=== PATIENT | female | born 1955 | race Caucasian/White ===

== ENCOUNTER 2022-03-17 16:12 | Inpatient (IN) | payer OTHER ==
[~2022-03-17] VITALS: Ht 160 cm; Wt 80.9 kg
[2022-03-17 17:37] LABS: BASOPHILS % 0.4 % (0.0-2.0); EOSINOPHILS % 1.7 % (0.0-5.0); HEMATOCRIT. 41.7 % (36.0-48.0); HEMOGLOBIN. 13.9 g/dL (12.0-16.0); LYMPHOCYTES % 27.8 % (20.0-50.0); MEAN CORPUSCULAR HEMOGLOBIN 32.3 pg (28.0-32.0); MEAN CORPUSCULAR VOLUME 96.7 fL (81.0-99.0); MONOCYTES % 7.5 % (2.0-8.0); NEUTROPHILS % 62.6 % (40.0-76.0); PLATELET 204 x1000/uL (130-400); RED BLOOD CELL COUNT 4.31 mill/uL (4.2-5.4); RED CELL DISTRIBUTION WIDTH 13.7 % (11.6-14.6)
[2022-03-17 17:43] LABS: CHLORIDE 108 mEq/L (98-107)
[2022-03-17] MEDS ORDERED: SODIUM CHLORIDE 0.9% 1,000 ML IV ONE ×2 (18:00→21:00)
[2022-03-17] MEDS ORDERED: LORAZEPAM 2MG/ML CPJ IV PRN (22:00)
[2022-03-17] MEDS ORDERED: HYDROCODONE/APAP 7.5/325MG 1 TAB TABLET PO PRN (22:00)
[2022-03-17] MEDS ORDERED: ONDANSETRON HCL 4MG/2ML INJ IV PRN (22:00)
[2022-03-17] MEDS ORDERED: ACETAMINOPHEN 325MG TABLET PO PRN (22:00)
[2022-03-17] MEDS ORDERED: DOCUSATE SODIUM 100MG CAPSULE PO PRN (22:00)
[2022-03-17] MEDS ORDERED: MORPHINE SULFATE 2 MG/ML CPJ (NOT FOR IM USE) IV PRN (22:00)
[2022-03-17] MEDS ORDERED: CLONIDINE 0.1MG TABLET PO PRN (22:00)
[2022-03-17] MEDS ORDERED: NALOXONE HCL 0.4MG/ML VIAL IV PRN (22:15)
[2022-03-18 00:54] LABS: CREATINE KINASE MB FRACTION 1.4 ng/mL (0.5-3.6)
[2022-03-18 04:25] VITALS: BP 178/79
[2022-03-18] MEDS ORDERED: ASPI-986 MT (05:36)
[2022-03-18 06:42] VITALS: BP 142/68
[2022-03-18 07:16] LABS: BASOPHILS % 0.9 % (0.0-2.0); EOSINOPHILS % 2.4 % (0.0-5.0); HEMATOCRIT. 37.4 % (36.0-48.0); HEMOGLOBIN. 12.5 g/dL (12.0-16.0); LYMPHOCYTES % 40.5 % (20.0-50.0); MEAN CORPUSCULAR HEMOGLOBIN 31.8 pg (28.0-32.0); MEAN CORPUSCULAR VOLUME 95.4 fL (81.0-99.0); MEAN PLATELET VOLUME 9.1 fl (7.4-10.4); NEUTROPHILS % 46.2 % (40.0-76.0); PLATELET 220 x1000/uL (130-400); RED BLOOD CELL COUNT 3.93 mill/uL (4.2-5.4); RED CELL DISTRIBUTION WIDTH 13.6 % (11.6-14.6)
[2022-03-18 07:34] LABS: CHLORIDE 110 mEq/L (98-107)
[2022-03-18 07:43] LABS: CREATINE KINASE 100 IU/L (26-192); CREATINE KINASE MB FRACTION 1.1 ng/mL (0.5-3.6); PHOSPHORUS 3.8 mg/dL (2.5-4.9)
[2022-03-18 08:00] VITALS: BP 95/53
[2022-03-18] MEDS: ASPIRIN 81MG EC TABLET PO SCH (08:43)
[2022-03-18] MEDS ORDERED: REGADENOSON 0.4 MG/5 ML IV NR (11:15)
[2022-03-18 12:00] VITALS: BP 117/53
[2022-03-18 13:36] LABS: ETHANOL BLOOD < 10 mg/dL; HDL CHOLESTEROL 45 mg/dL (40-59); LDL CHOLESTEROL 121 mg/dL (5-100)
[2022-03-18 16:20] VITALS: BP 115/53
[2022-03-18 20:00] VITALS: BP 131/67
[2022-03-18 21:11] LABS: PROTHROMBIN TIME 10.7 sec (9.6-11.0)
[2022-03-18 22:24] LABS: CLARITY URINE CLEAR (CLEAR); COLOR URINE YELLOW (YELLOW); KETONES URINE NEGATIVE (NEGATIVE); LEUKOCYTE ESTERASE URINE 2+ (NEGATIVE); NITRITE URINE NEGATIVE (NEGATIVE); OCCULT BLOOD URINE NEGATIVE (NEGATIVE); PH URINE 6.5 (4.5-8.0); PROTEIN URINE NEGATIVE (NEGATIVE); SPECIFIC GRAVITY URINE 1.013 (1.005-1.030)
[2022-03-18 22:52] LABS: *AMPHETAMINES SCREEN URINE NEGATIVE (NEGATIVE); *BARBITURATES SCREEN URINE NEGATIVE (NEGATIVE); *BENZODIAZEPINES SCREEN URINE NEGATIVE (NEGATIVE); *COCAINE SCREEN URINE NEGATIVE (NEGATIVE); CANNABINOID URINE SCREEN NEGATIVE (NEGATIVE); METHADONE URINE SCREEN NEGATIVE (NEGATIVE); OPIATES URINE SCREEN NEGATIVE (NEGATIVE); PHENCYCLIDINE URINE SCREEN NEGATIVE (NEGATIVE)
[2022-03-19] VITALS: BP 132/72
[2022-03-19 04:00] VITALS: BP 108/52
[2022-03-19] MEDS ORDERED: CEFTRIAXONE 1 G PREMIX 50 ML IV SCH (08:00)
[2022-03-19] MEDS ORDERED: IODIXANOL 320 MG/ML 150ML BOTTLE IV ONE (08:10)
[2022-03-19] MEDS ORDERED: LIDOCAINE HCL/PF 1% 10 MG/ML 5ML VIAL ONE (08:10)
[2022-03-19] MEDS ORDERED: HEPARIN 1000 UNITS/ML 10ML ONE (08:11)
[2022-03-19] MEDS ORDERED: VERAPAMIL HCL 2.5 MG/1 ML 2ML VIAL IV ONE (08:11)
[2022-03-19] MEDS ORDERED: MIDAZOLAM HCL 2 MG/2 ML VIAL ONE (08:13)
[2022-03-19] MEDS ORDERED: FENTANYL CITRATE/PF 50MCG/ML 2ML VIAL ONE (08:13)
[2022-03-19] MEDS ORDERED: DIPHENHYDRAMINE 50MG/ML VIAL ONE (08:13)
[2022-03-19] MEDS ORDERED: NITROGLYCERIN 50MCG/ML 10ML VIAL (CATH LAB) IV ONE (08:19)
[2022-03-19] MEDS ORDERED: NICARDIPINE 100MCG/ML 10ML VIAL (CATH LAB) IV ONE (08:19)
[2022-03-19] MEDS ORDERED: ATROPINE SULFATE 1MG/10ML SYR IV PRN (09:00)
[2022-03-19] MEDS: ASPIRIN 81MG EC TABLET PO SCH (09:00)
[2022-03-19] MEDS ORDERED: LEVO500T90 MT (09:45)
[2022-03-19] MEDS ORDERED: CEFTRIAXONE 1,000 MG in DEXTROSE 5% WATER 50 ML IV SCH (10:00)
[2022-03-19 12:00] VITALS: BP 137/74
[2022-03-19 13:24] VITALS: BP 137/74
== END 2022-03-19 15:15 | disposition home or self-care (01) | DRG 287 ==
LOC: ER 16:12 → MICUSO 19:53 → EDBEDREQ 20:43 → EDBEDREQTM 20:43 → 8WST 03-18 04:42
PROVIDERS: ADMIT Internal Medicine Nephrology; ATTEND Internal Medicine Nephrology
PROC: 4A023N7 Measurement of Cardiac Sampling and Pressure, Left Heart, Percutaneous Approach (ICD-10-PCS; principal; 2022-03-19)
PROC: B211YZZ Fluoroscopy of Multiple Coronary Arteries using Other Contrast (ICD-10-PCS; 2022-03-19)
DX: I25.110 Atherosclerotic heart disease of native coronary artery with unstable angina pectoris (principal); N39.0 Urinary tract infection, site not specified; I10 Essential (primary) hypertension; E11.9 Type 2 diabetes mellitus without complications; E66.9 Obesity, unspecified; E78.5 Hyperlipidemia, unspecified; E87.8 Other disorders of electrolyte and fluid balance, not elsewhere classified; Z20.822 Contact with and (suspected) exposure to COVID-19; R74.01 Elevation of levels of liver transaminase levels; R79.89 Other specified abnormal findings of blood chemistry; G89.29 Other chronic pain; Z86.73 Personal history of transient ischemic attack (TIA), and cerebral infarction without residual deficits; Z68.31 Body mass index [BMI] 31.0-31.9, adult; Z79.82 Long term (current) use of aspirin; Z71.3 Dietary counseling and surveillance
CPT/HCPCS: 36415; 71045; 78582; 80048; 80053; 80061; 80305; 80320; 81003; 82550; 82553; 82962; 83036; 83735; 83880; 84100; 84484; 85025; 85379; 87426; 93005; 93306; 93458; 93970; 99285; A9558; C1769; C1887; C1893; J0696; J1200; J1644; J2250; J3010; J3490; J7030; J7060; Q9967; G0480